=== PATIENT | male | born 1930 | race Caucasian/White ===

== ENCOUNTER 2017-05-11 14:53 | Inpatient (IN) | payer OTHER, BC ==
[~2017-05-11] VITALS: Ht 165.1 cm; Wt 69.4 kg
--- NOTE | ~2017-05-11 | HC ---
[facility] [place] [address] CONSULTATION Name: ENRIKE MCDUFFIE Room #: 214-P [facility] IN M.R.#: [id number] Admission: 05/11/17 Attend Phys: Augie Calvo MD Discharge: Date of : 30 Report #: [id number] THIS REPORT FOR: //name// CC: Lenard Calvo DATE OF SERVICE: 05/12/2017 HISTORY OF PRESENT ILLNESS: This is an 86-year-old male patient on whom history is not very clear. The patient indicates that he is having arthritis and weakness, which started about 6-8 months ago. It started spontaneously without trauma and has progressively become worse. Sometime along the time, he also has developed tremor, but he thinks tremor is just a few weeks' duration. He does not know anything which makes the symptoms better or worse. REVIEW OF SYSTEMS: Indicate he has a history of coronary artery disease. He has a history of DVT. He falls down. He has a history of atrial fibrillation. He does have a history of COPD. Record indicated that he also has a history of noncompliance. This patient is on anticoagulation and his last INR was 2.4. The patient also has a history of dyslipidemia and he indicates he is on statin. He also indicates that he has noticed that he becomes confused and he does not remember as much as he used to. He does have visual disturbances, but that has been present for a long time and is because of retinal problem. He denies any loss of hearing. He denies any new musculoskeletal, constitutional, dermatological, hematological, psychiatric, throat, or allergic symptom. I did carry out 14-point review of system and it was mostly noncontributory. PAST MEDICAL HISTORY: Positive for significant cardiac problem. FAMILY HISTORY: Negative for early age stroke. SOCIAL HISTORY: He does not smoke, but he does drink alcohol. PHYSICAL EXAMINATION: The patient's examinations indicate that this patient is alert and responsive. He was able to tell me what month and what date it is. His speech was intact. His fund of knowledge and memory is unremarkable. His cranial nerve examination 2-12 was mostly unremarkable except for visual loss in the right eye. Neuromuscular examinations indicate that he is weaker in all 4 extremities. It is more so distally than proximally. His position sense is present. His reflexes are well elicited in the lower extremities. He does not have any [id number] abnormality. I could not look at the fundus very well. He is a reasonably well-developed individual who does not have any dysmorphic features of eyes, ears, and face. His vision and hearing looks adequate. 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 His pulses are somewhat difficult to feel, but he has no edema, cyanosis, or jaundice. He has no thyroid mass. His heart is irregular consistent with [address] [address] CONSULTATION Name: ENRIKE MCDUFFIE Shirley Room #: 214-P [facility] IN ..#: [id number] Admission: 05/11/17 Attend Phys: Augie Calvo MD Discharge: Date of : 30 Report #: [id number] atrial fibrillation. Respiratory examination does not appear to be showing any marked respiratory difficulty or rhonchi on either side. Blood pressure is 106/54, respiration is 20, pulse is 98, and temperature is 98.9. LABORATORY DATA: White count is 5.3. His creatinine is somewhat high at 1.5. His TSH is normal and so is the vitamin B12. His CT scan of the head was mostly unremarkable. IMPRESSION: 1. Weakness in all 4 extremities of unknown etiology. He is complaining of lot of spine problems. We will try to get the workup done in this patient and he will need the evaluation of the brain and spine. 2. Systemic etiologies including collagen vascular disorder need to be excluded. 3. I do not know what his confusion is from, but we will try to work him up. 4. He does have urinary tract infection and part of his symptom may be secondary to encephalopathy, especially the confusion. RECOMMENDATIONS: 1. MRI. 2. EEG. 3. He needs EMG, but we do not have any machine to do EMG. 4. We will see how he does with physical therapy. 5. I discussed all of it with the patient and he understands all those and he wants to follow this plan. Thank you very much for this referral and if you have any question, please feel free to contact me. <ELECTRONICALLY SIGNED> By: Devon Cortes MD 05/13/17 0721 0916 1144 Devon Cortes MD /nt
--- NOTE | ~2017-05-11 | EEG ---
[facility] [place] [address] [place] [address] ELECTROENCEPHALOGRAM Name: ENRIKE MCDUFFIE Room #: 214-P [facility] IN M.R.#: [id number] Admission: 05/11/17 Attend Phys: Augie Calvo MD Discharge: Date of : 30 Report #: [id number] THIS REPORT FOR: //name// CC: Lenard Calvo DATE OF SERVICE: 05/12/2017 This patient is being evaluated for dizziness. The EEG was done by placing the electrodes by standard 10-20 system of electrode placement. Both referential and sequential montages were used for recording. Background activity in this patient's EEG is about 8 Hz and 30 microvolt. The patient went to sleep that is associated with bilaterally symmetrical sleep spindle and vertex sharp waves. Photic stimulation is unremarkable. Throughout the record, no active epileptiform activity was noticed. IMPRESSION: This patient's electroencephalogram is intermixed with theta range slowing. That is a nonspecific abnormality, which can occur with encephalopathy, effect of psychotropic medication, dementia, etc. Clinical correlation is recommended. <ELECTRONICALLY SIGNED> By: Devon Cortes MD 05/13/17 0719 1842 [id number] Devon Cortes MD /nt
--- NOTE | ~2017-05-11 | EKG ---
[address] [address] ELECTROCARDIOGRAM REPORT Name: ENRIKE MCDUFFIE Room #: 214-P ADM IN M.R.#: [id number] Admission: 05/11/17 Attend Phys: Augie Calvo MD Discharge: Date of : 30 Report #: [id number] THIS REPORT FOR: //name// [facility] ED Test Date: 2017-05-11 Test Time: 15:20:24 Pat Name: ENRIKE MCDUFFIE Department: Room: 214 Gender: M Soliciting Freight Agent: jenny : [phone] Requested By: Evangelista Iyer Order Number: [id number] MD: José Miguel Martinez Measurements Intervals [place] Rate: 101 P: MN: QRS: -82 QRSD: 133 T: -47 QT: 365 QTc: 474 Interpretive Statements Atrial fibrillation Right bundle branch block Baseline wander in lead(s) V2 Compared to ECG 12/01/2015 14:41:29 No significant change was found Electronically Signed On 05-12-2017 7:47:19 [employer] by José Miguel Martinez [email or web address] <ELECTRONICALLY SIGNED> By: José Miguel Martinez MD, [facility] 05/12/17 0747 1520 1520 José Miguel Martinez MD, [facility] /EPI
--- NOTE | ~2017-05-11 | HC ---
[facility] [place] [address] CONSULTATION Name: ENRIKE MCDUFFIE Shirley Room #: 214-P [facility] IN .R.#: [id number] Admission: 05/11/17 Attend Phys: Augie Calvo MD Discharge: 05/14/17 Date of : 30 Report #: [id number] THIS REPORT FOR: //name// CC: Lenard Calvo DATE OF SERVICE: 05/14/2017 HISTORY OF PRESENT ILLNESS: The patient is an 86-year-old white male, who has had a history of weakness over the past 6-8 months. He also has had some problems with confusion. He notes his symptoms have worsened in the past several weeks. He has degenerative arthritic complaints that way in as well. He was seen by Neurology and noted to have confusion with question of encephalopathy. He also was noted to have weakness of all 4 extremities. MRI scan did show arthritic changes of his cervical, thoracic, and lumbar spine. MRI of the head was benign except for some changes noted with the right eye, which is old. The patient is noted to have some cognitive impairment/encephalopathy. Neurology has recommended an EMG as an outpatient and further lab evaluation to rule out a neuromuscular disease. The patient has significant functional mobility and ADL deficits as well as cognitive concerns and we are seeing him in rehabilitation medicine consultation. PAST MEDICAL HISTORY: Includes hypertension; atrial fibrillation, on anticoagulation; chronic dizziness. He has had a history of falls as noted above. He has had a coronary artery bypass graft x 4; history of COPD; atrial fibrillation; right lower extremity DVT. There is a note of some noncompliance. MEDICATIONS: Please see the full medication listing. HABITS: There is a note of 2 shots of bourbon daily. No history of tobacco abuse. SOCIAL HISTORY: recently approximately 2 months ago. Lives in a house alone. Uses a walker. Involved daughter. REVIEW OF SYSTEMS: Did not offer any current complaints of chest pain, shortness of breath, or abdominal discomfort. He has some chronic arthritic complaints, which is premorbid. 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 PHYSICAL EXAMINATION: GENERAL: An 86-year-old white male, no obvious distress. VITAL SIGNS: Last recorded temperature 98.3, pulse 69, respirations 16, and blood pressure 107/52. NEUROLOGIC: The patient is alert. There is some latency to his responses. He will follow basic 1-step commands. Some slowness in his responses. His facies appeared symmetric. Functional range of motion of both upper extremities. [facility] [address] [place] [address] CONSULTATION Name: ENRIKE MCDUFFIE Room #: 214-P [facility]#: [id number] Admission: 05/11/17 Attend Phys: Augie Calvo MD Discharge: 05/14/17 Date of : 30 Report #: [id number] Strength is grade 3+ to 4-/5. His lower extremities, he has functional range of motion with strength grade 3+ to 4-/5. DTRs are grade 1-2. He does appear to have position sense present. He does have the blindness of that right eye. Lower extremity strength is probably a grade 3+ to 4-/5. Functionally, he is transferring with mod assist and did ambulate mod assist 120 feet using the front-wheeled walker. Some retropulsive tendency. ASSESSMENT: An 86-year-old white male with the following problem list: 1. Encephalopathy with cognitive impairment, appears multifactorial. 2. Rule out neuromuscular disorder. He is to have outpatient followup with Neurology including EMG and laboratory workup. 3. Acute renal insufficiency, which is improving. 4. Atrial fibrillation with rapid ventricular rate. 5. Urinary tract infection with sepsis. 6. Dizziness, which is noted to be chronic. 7. Degenerative arthritis with some chronic pain. 8. Sarcopenia. PLAN: Note, geriatric recommendations to stop the statin to possibly explain some of his cognitive decline. Would anticipate the patient should be a good candidate for an acute in-hospital inpatient rehabilitation stay. The goal would be to maximize his functional independence so that he could hopefully return back to his prior living situation. We will check on acute rehab bed availability and we will be glad to follow up with you regarding his rehab therapy needs. Thank you for asking us to assist in this patient's care. <ELECTRONICALLY SIGNED> By: Ken Silverman MD 06/10/17 1030 1225 27 Ken Silverman MD /nt
--- NOTE | ~2017-05-11 | HC ---
[facility] [place] [place] [address] CONSULTATION Name: ENRIKE MCDUFFIE Room #: 214-P [facility] IN M.R.#: [id number] Admission: 05/11/17 Attend Phys: Augie Calvo MD Discharge: 05/14/17 Date of : 30 Report #: [id number] THIS REPORT FOR: //name// CC: PAT Calvo MD DATE OF SERVICE: 05/14/2017 INTRODUCTION: The patient is an 86-year-old male who is being seen for general podiatric care as it pertains to severe onychodystrophy. The patient has been admitted to [facility] with weakness, chronic pain, some measure of debilitation and dizziness. He is in the process of transitioning to rehabilitation floor. Main complaint regarding his feet is severely dystrophic and elongated nails that he has been physically unable to care for and have been painful and difficult for him to contend with. He has no other complaints with regard to his feet and no acute issues. Remainder of his past medical history with regard to this consultation is unremarkable. His pedal exam reveals dorsalis pedis and posterior tibial pulses graded at 1/4. Capillary refill time is within normal limits. He demonstrates 2+ lower extremity edema that is likely cardiac and mechanically related. There are no acute changes with regard to this edema such as blistering ulceration, etc. Neurologically, the patient is grossly intact to sensory stimulus including sharp, dull, proprioceptive and vibratory sensations. His nails are severely thickened, elongated, and have curled back on themselves. Both great toenails are over 4 cm long, thickened with old subungual bleeding. There are no other relevant dermatologic findings. The patient's nails were debrided and no additional underlying pathology was noted such as bacterial infection, ulceration, drainage, etc. IMPRESSION: 1. Onychomycosis with severe onychodystrophy. 2. Lower extremity edema. PLAN: The patient's nails were debrided as mentioned. No additional treatment was required. The patient was given information for followup on an outpatient basis if he so desires. It has been a pleasure having the opportunity of working with the patient. I will be pleased to follow up with him upon request. <ELECTRONICALLY SIGNED> By: Chito Remy DPM 06/04/17 1741 1648 0113 Chito Remy DPM /nt
[~2017-05-11 14:53] MED LIST: COUMADIN 1MG TAB1 M1 PO; COUMADIN 5 MG TA5 M1 PO; CRESTOR10 MG PO; HYDROCODONE-AP1 EAC6 PO; LASIX 20 MG TAB20 MG PO; LASIX 40 MG TAB40 M2 PO; LEVOTHYROXINE 0.15MG PO; PRINIVIL10 MG PO; SPIRIVA INH; TENORMIN25 MG PO; TRAMADOL 50 MG50 MG PO; TUMS PO; TYLENOL325 MG PO
[2017-05-11 15:24] LABS: ABSOLUTE NEUTROPHILS 5.4 thou/uL (1.4-8.2); BASOPHILS 0.9 % (0.0-2.0); EOSINOPHILS 0.4 % (0.0-3.0); HEMATOCRIT 37.3 % (42.0-52.0); HEMOGLOBIN 12.6 gm/dL (14.0-18.0); LYMPHOCYTES 17.9 % (24.0-44.0); MCH 33.2 pg (26.0-34.0); MCHC 33.7 g/dL (28.0-37.0); MCV 98.4 fL (80.0-100.0); MONOCYTES 10.3 % (1.0-8.0); PLATELET COUNT 193 thou/uL (150-400); POLYS 70.5 % (36.0-66.0); RBC 3.79 mil/uL (4.50-6.00); RDW 13.6 % (10.5-14.5); WBC 7.7 thou/uL (4.0-11.0)
[2017-05-11 15:39] LABS: ANION GAP 12 mmol/L (7-16); BUN 31 mg/dL (7-18); CALCIUM 10.1 mg/dL (8.5-10.1); CHLORIDE 103 mmol/L (98-107); CO2 27 mmol/L (21-32); CREATININE 1.9 mg/dL (0.7-1.3); GLUCOSE 97 mg/dL (74-106); POTASSIUM 3.9 mmol/L (3.5-5.1); SODIUM 142 mmol/L (136-145); TROPONIN-I < 0.04 ng/mL (<0.06)
[2017-05-11 15:44] LABS: APTT 39.5 Seconds (24.5-32.8); INR 2.4; PROTIME 24.5 Seconds (9.3-11.4)
[2017-05-11 16:55] VITALS: BP 116/68
[2017-05-11 17:16] VITALS: BP 119/74
[2017-05-11] MEDS ORDERED: ATENOLOL 50MG T50 M1 PO (17:54)
[2017-05-11] MEDS ORDERED: LASIX 20 MG TAB20 MG PO (17:56)
[2017-05-11] MEDS ORDERED: LIPITOR 20 MG T20 M1 PO (17:57)
[2017-05-11] MEDS ORDERED: COUMADIN 2 MG TA2 M1 PO (17:57)
[2017-05-11] MEDS ORDERED: NITROGLYCERIN0.4 MG SUBLING (17:58)
[2017-05-11] MEDS ORDERED: FOLIC ACID1 MG PO (17:59)
[2017-05-11] MEDS ORDERED: REMERON15 MG PO (18:01)
[2017-05-11] MEDS ORDERED: SYNTHROID175 MCG PO (18:02)
[2017-05-11] MEDS ORDERED: FLOMAX0.4 MG PO (18:04)
[2017-05-11] MEDS ORDERED: VITAMIN D2000 UNIT PO (18:06)
[2017-05-11] MEDS ORDERED: VITAMIN B-12500 MCG PO (18:06)
[2017-05-11 20:18] VITALS: BP 140/80
[2017-05-11 20:19] VITALS: BP 140/80
[2017-05-11 22:25] LABS: FOLIC ACID > 40.0 ng/mL (8.6-58.9)
[2017-05-11 23:38] VITALS: BP 134/63
[2017-05-12 03:57] VITALS: BP 106/54
[2017-05-12 04:15] LABS: HEMATOCRIT 30.7 % (42.0-52.0); MCH 33.6 pg (26.0-34.0); MCHC 34.2 g/dL (28.0-37.0); MCV 98.5 fL (80.0-100.0); RBC 3.11 mil/uL (4.50-6.00); RDW 13.8 % (10.5-14.5); WBC 5.3 thou/uL (4.0-11.0)
[2017-05-12 04:17] LABS: HEMOGLOBIN 10.5 gm/dL (14.0-18.0)
[2017-05-12 04:19] LABS: CALCIUM 8.5 mg/dL (8.5-10.1); CREATININE 1.5 mg/dL (0.7-1.3); POTASSIUM 3.5 mmol/L (3.5-5.1)
[2017-05-12 05:19] LABS: URINE BILIRUBIN 1+ (Negative); URINE BLOOD 3+ (Negative); URINE CLARITY CLEAR; URINE COLOR YELLOW; URINE GLUCOSE-RANDOM* NEGATIVE (Negative); URINE KETONES TRACE (Negative); URINE LEUKOCYTES 2+ (Negative); URINE NITRITE NEGATIVE (Negative); URINE PROTEIN (DIPSTICK) TRACE (Negative); URINE SPECIFIC GRAVITY 1.015 (1.005-1.035)
[2017-05-12 05:46] LABS: ICTOTEST (BILI CONFIRMATORY) Positive (Negative)
[2017-05-12 05:47] LABS: SQUAMOUS 4-10 Moderate /LPF (0-3)
[2017-05-12 05:48] LABS: AMORPHOUS URATES Few /LPF (None Seen); BACTERIA 1-9 Few /HPF (None Seen); CRYSTALS None Seen /LPF (None Seen); HYALINE CASTS 0-3 Few /LPF (None Seen); MUCUS 0-3 Light strn/LPF (None Seen); URINE RBC >20 Many /HPF (0-2)
[2017-05-12 10:05] VITALS: BP 129/70
[2017-05-12 13:42] LABS: CHOLESTEROL 93 mg/dL (<200); HDL CHOLESTEROL 48 mg/dL (>40); LDL CHOLESTEROL 29 mg/dL (<100); MAGNESIUM 1.5 mg/dL (1.8-2.4); TC:HDL 1.9 Ratio (Not establshd); TRIGLYCERIDE 84 mg/dL (<150); VLDL 17 mg/dL (<40)
[2017-05-12 16:59] VITALS: BP 116/58
[2017-05-12 17:50] LABS: URINE CREATININE-RANDOM* 150.2 mg/dL
[2017-05-12 19:17] VITALS: BP 103/54
[2017-05-13 04:26] VITALS: BP 117/60
[2017-05-13 07:36] VITALS: BP 114/66
[2017-05-13 07:56] LABS: HEMATOCRIT 29.8 % (42.0-52.0); MCH 33.2 pg (26.0-34.0); MCHC 33.6 g/dL (28.0-37.0); MCV 98.8 fL (80.0-100.0); RBC 3.02 mil/uL (4.50-6.00); RDW 13.8 % (10.5-14.5); WBC 4.6 thou/uL (4.0-11.0)
[2017-05-13 08:10] LABS: PROTIME 19.1 Seconds (9.3-11.4)
[2017-05-13 08:14] LABS: CREATININE 1.2 mg/dL (0.7-1.3); MAGNESIUM 1.5 mg/dL (1.8-2.4); POTASSIUM 3.6 mmol/L (3.5-5.1)
[2017-05-13 11:14] VITALS: BP 104/67
[2017-05-13 16:13] VITALS: BP 119/66
[2017-05-13 17:01] VITALS: BP 110/61; BP 113/69; BP 114/65
[2017-05-13 19:24] VITALS: BP 105/60
[2017-05-14 03:38] VITALS: BP 123/69
[2017-05-14 04:34] LABS: INR 1.6; PROTIME 16.6 Seconds (9.3-11.4)
[2017-05-14 04:38] LABS: ALBUMIN 2.5 g/dL (3.4-5.0); CALCIUM 8.4 mg/dL (8.5-10.1); CREATININE 1.4 mg/dL (0.7-1.3); PHOSPHORUS 2.6 mg/dL (2.5-4.9); POTASSIUM 4.2 mmol/L (3.5-5.1); TOTAL BILIRUBIN 0.3 mg/dL (<0.1-1.0); TOTAL PROTEIN 5.8 g/dL (6.4-8.2)
[2017-05-14 04:49] LABS: % SATURATION 14 % (20-39); IRON 23 ug/dL (65-175); TIBC 169 ug/dL (250-450)
[2017-05-14 07:32] VITALS: BP 137/75
[2017-05-14 11:25] VITALS: BP 107/52
[2017-05-14] MEDS ORDERED: MIRALAX17 GM PO (11:26)
[2017-05-14] MEDS ORDERED: TYLENOL325 MG PO (11:26)
== END 2017-05-14 15:48 | DRG 871 ==
LOC: ER 14:53 → EROBS 16:31 → 2N 16:31
PROVIDERS: Hospitalist; Internal Medicine Geriatric Medicine; Nurse Practitioner; Registered Nurse
DX: A41.9 Sepsis, unspecified organism (principal); G93.40 Encephalopathy, unspecified; N17.9 Acute kidney failure, unspecified; N39.0 Urinary tract infection, site not specified; E78.5 Hyperlipidemia, unspecified; I10 Essential (primary) hypertension; J44.9 Chronic obstructive pulmonary disease, unspecified; I48.91 Unspecified atrial fibrillation; M19.90 Unspecified osteoarthritis, unspecified site; G89.29 Other chronic pain; G31.84 Mild cognitive impairment of uncertain or unknown etiology; M62.84 Sarcopenia; B35.1 Tinea unguium; L60.3 Nail dystrophy; F32.9 Major depressive disorder, single episode, unspecified; Z95.1 Presence of aortocoronary bypass graft; Z86.718 Personal history of other venous thrombosis and embolism; Z79.899 Other long term (current) drug therapy; Z91.81 History of falling; Z82.49 Family history of ischemic heart disease and other diseases of the circulatory system
CPT/HCPCS: 10081

== ENCOUNTER 2017-05-14 13:25 | Inpatient (IN) | payer OTHER, BC ==
[~2017-05-14] VITALS: Ht 175.3 cm; Wt 66.9 kg
--- NOTE | ~2017-05-14 | H ---
[facility] [place] [address] [place] [address] HISTORY AND PHYSICAL Name: ENRIKE MCDUFFIE Room #: 504-1 ADM IN M.R.#: [id number] Admission: 05/14/17 Attend Phys: Ken Silverman MD Discharge: Date of : 30 Report #: [id number] THIS REPORT FOR: //name// CC: Ken Eubanks DATE OF SERVICE: 05/14/2017 HISTORY AND PHYSICAL AND POST ADMISSION PHYSICIAN EVALUATION HISTORY OF PRESENT ILLNESS: The patient is an 86-year-old white male with a prior history of weakness over the past 6-8 months. He also had some problems with confusion. His symptoms have worsened in the past several weeks. He has degenerative arthritic complaints as well. He was seen by Neurology during this acute hospitalization and noted to have confusion with a question of encephalopathy. He was also noted to have weakness of all 4 extremities. MRI scan did show arthritic changes of the cervical, thoracic, and lumbar spine. MRI of the head was benign except for some changes noted with the right eye, which is old. The patient was noted to have some cognitive impairment with encephalopathy. Neurology recommended an EMG as an outpatient and further lab evaluation to rule out a neuromuscular disease. The patient does have significant functional mobility and ADL deficits as well as cognitive concerns and he has now been admitted for acute in-hospital inpatient rehabilitation. PAST MEDICAL HISTORY: Includes hypertension, atrial fibrillation, on anticoagulation; chronic dizziness. He has a history of falls, which are intermittent. He has coronary artery disease with coronary artery bypass graft x 4, history of COPD, atrial fibrillation, and right lower extremity DVT. There is note of some noncompliance. MEDICATIONS: Please see the full medication listing. Each of these was individually reconciled and includes vitamins, herbals, and supplements. HABITS: There is a note of 2 shots of bourbon daily. No history of tobacco abuse. SOCIAL HISTORY: recently approximately 2 months ago. He lives in a house alone. Uses a walker. Involved daughter. REVIEW OF SYSTEMS: No current complaints of chest pain, shortness of breath, or abdominal discomfort. 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 He does have diffuse chronic arthritic complaints. PHYSICAL EXAMINATION: GENERAL: An 86-year-old white male who was seen earlier in no distress, was [place] [address] HISTORY AND PHYSICAL Name: ENRIKE MCDUFFIE Room #: [address] [place] [address] [facility].#: [id number] Admission: 05/14/17 Attend Phys: Ken Silverman MD Discharge: Date of : 30 Report #: [id number] VITAL SIGNS: Last recorded temperature 97.8, pulse 80, respirations 18, and blood pressure 122/70. He does have the right eye blindness. HEENT: Facies otherwise appeared symmetric. CHEST: Sounded clear to auscultation. CARDIOVASCULAR: Regular rate with extra beat. ABDOMEN: Bowel sounds positive. Nontender. GENITOURINARY AND RECTAL: Deferred. NEUROLOGIC: He does follow basic 1 step commands. There is some latency to his responses. Again, he was rather sleepy when I saw him, but was pleasant. Functionally, he has been mod assist with basic transfers prior to coming up to the rehab black and as needed mod assist, ambulated short distance with some retropulsive tendency. ASSESSMENT: An 86-year-old white male with the following problems: 1. Encephalopathy with cognitive impairment, appears multifactorial. 2. Rule out neuromuscular disorder. He is to have an outpatient followup with Neurology including EMG and laboratory workup. 3. Acute renal insufficiency, which is improving. 4. Atrial fibrillation with rapid ventricular rate. 5. Urinary tract infection with sepsis. 6. Dizziness noted to be chronic. 7. Degenerative arthritis with some chronic pain. 8. Sarcopenia. 9. Monitor for orthostasis. PLAN: The patient is admitted for acute in-hospital inpatient rehabilitation. From a postadmission physician evaluation perspective, there are no relevant changes since the preadmission screening. Please see the above review of prior and current medical and functional conditions and comorbidities. Please see the patient's previous and current functional status. As far as risk of complications, the patient has the multiple medical comorbidities as noted above. Initial plan of care involves the interdisciplinary acute inpatient rehabilitation program with the goal of maximizing the patient's functional independence, so that he can hopefully return back to his prior living situation. Measurable functional goals would be for him to become modified independent with basic transfers, mobility issues at least at the walker level as well as improvement of his overall cognition. Prognosis is reasonably good with estimated length of stay probably at least 2 weeks and potentially longer if needed. Potential barriers would include his multiple medical comorbidities and decreased functional status. The patient meets diagnostic criteria for an acute in-hospital inpatient rehabilitation stay. He does meet the medical necessity criteria and we will have the polymer materials consultant physicians continue to follow. He is on the rehab black. He [facility] [address] [place] [address] HISTORY AND PHYSICAL Name: ENRIKE MCDUFFIE Room #: 504-1 ADM IN M.R.#: [id number] Admission: 05/14/17 Attend Phys: Ken Silverman MD Discharge: Date of : 30 Report #: [id number] does have the tolerance for therapies and has an appropriate discharge goals back to the home setting. <ELECTRONICALLY SIGNED> By: Ken Silverman MD 05/15/17 1424 0705 0740 Ken Silverman MD /PMT
--- NOTE | ~2017-05-14 | PLAN ---
[facility] [place] [address] REHAB UNIT PLAN OF CARE Name: ENRIKE MCDUFFIE Room #: 504-2 ADM IN M.R.#: [id number] Admission: 05/14/17 Attend Phys: Ken Silverman MD Discharge: Date of : 30 Report #: [id number] THIS REPORT FOR: //name// CC: Ken Eubanks DATE OF SERVICE: 05/16/2017 SUBJECTIVE: The patient is seen back in followup. He is in no distress. Temperature 36.9, pulse 86, respirations 18, blood pressure 101/59. Transfers are contact guard with gait contact guard 250 feet with a front-wheeled walker. He is alert and pleasant. Lower body dressing is contact guard. We are monitoring him for any orthostatic symptomatology. Speech therapy is involved with mild comprehensive deficits noted. He has mild expressive deficits. ASSESSMENT: 1. Encephalopathy with cognitive impairment, appears multifactorial. 2. Rule out neuromuscular disorder. He is to have an outpatient followup with neurology. 3. Acute renal insufficiency noted to be improving. Last recorded creatinine is 1.2. 4. Atrial fibrillation with rapid ventricular rate. 5. Urinary tract infection with sepsis. 6. Dizziness noted to be chronic. 7. Degenerative arthritis with some chronic pain. 8. Monitoring for orthostasis. PLAN: The overall plan of care is based on the preadmission screen, post-admission physician evaluation and information garnered from therapy assessments. 1. Estimated length of stay is probably fairly short 7-10 days, possibly up to 2 weeks if needed. 2. Medical prognosis reasonably good. 3. Anticipated interventions includes the interdisciplinary acute inpatient rehabilitation program with PT and OT. Speech therapy, rehab nursing assisting regarding medication management, skin care prophylaxis, bowel and bladder issues and nursing education. Case management is involved as well as the senior health consultant physicians and Rehab Psychology. The goal is to maximize his functional independence so he can return back to the home setting. 4. Anticipated functional outcomes would be for him to be modified independent at least at the walker level with improvement in cognition and ADLs. 5. Discharge destination would be back to the home setting. He has been living alone as his recently . 6. Expected therapy by discipline includes PT, OT and speech 1 hour per day, [place] [phone] REHAB UNIT PLAN OF CARE Name: ENRIKE MCDUFFIE Room #: 504-2 [facility] IN [facility]#: [id number] Admission: 05/14/17 Attend Phys: Ken Silverman MD Discharge: Date of : 30 Report #: [id number] each five days a week throughout the duration of the acute inpatient rehabilitation stay. <ELECTRONICALLY SIGNED> By: Ken Silverman MD 05/20/17 0857 1036 [id number] Ken Silverman MD /PMT
--- NOTE | ~2017-05-14 | HC ---
[facility] [place] [address] [place] [address] CONSULTATION Name: ENRIKE MCDUFFIE Room #: 504-2 ADM IN M.R.#: [id number] Admission: 05/14/17 Attend Phys: Ken Silverman MD Discharge: Date of : 30 Report #: [id number] THIS REPORT FOR: //name// CC: Kne Eubanks DATE OF SERVICE: 05/16/2017 NEUROBEHAVIORAL STATUS EXAM: ATTENDING PHYSICIAN: Ken Silverman MD. PIPE CONNECTOR: Khang Carrillo, PhD. CLINICAL PRESENTATION: The patient is an 86-year-old male admitted to [facility] rehab unit for a comprehensive inpatient rehabilitation program to improve functional mobility and activities of daily living and self-care and mental status secondary to deficits from encephalopathy, multifactorial with cognitive impairment. Additional assessment includes a rule out of a neuromuscular disorder, acute. Patient also carries diagnoses of acute renal insufficiency, atrial fibrillation with rapid ventricular rate, urinary tract infection with sepsis, dizziness noted to be chronic, degenerative arthritis with some chronic pain, sarcopenia and monitor for orthostasis. His daughter reports that the patient has a high daily consumation of alcohol and has for many years. She suspects that his use of alcohol is contributing to his falling. Neuropsychological consultation was requested to provide assistance in the assessment of cognitive and emotional status and to provide recommendations and services. The patient is currently living independently in his own home. He has two children. His about 2 months ago. The patient is a college graduate. 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 TECHNIQUES UTILIZED: Clinical interview, review of medical records, staff consultation and behavioral observation, mini mental status exam 2 standard version, letter and category fluency assessment, clock drawing and brief abstract reasoning test. EXAMINATION FINDINGS: The patient was alert and cooperative with the assessment. He accurately described events surrounding his admission. There is no evidence of aphasia. His thoughts are logical and goal oriented. There is no evidence of thought disorder. He does not report auditory or visual [facility] [email or web address] [address] CONSULTATION Name: ENRIKE MCDUFFIE Room #: 504-2 [facility] IN [facility].#: [id number] Admission: 05/14/17 Attend Phys: Ken Silverman MD Discharge: Date of : 30 Report #: [id number] hallucinations. He describes his symptoms as including sleep, appetite and depression. Patient has had a 60-pound weight loss. He does not report anxiety. He has discontinued driving as a result of a fall which lresulted in a eft retina detachment. The patient does not report use of alcohol. However, as indicated, his daughter reports a high level of use and that the patient has been reluctant to disclose to his health care providers the extent of his alcohol use. She describes him as an alcoholic with daily intake of bourbon. His daughter has been providing assistance to help him maintain independent living in the community. His performance on the MMSE 2 brief version was extremely low with a raw score of 10 of 16, which is a T score of 13 and percentile rank of less than 1. His performance improved on the MMSE 2 standard version with a raw score of 23 of 30, which is a T score of 32 and percentile rank of 4. The patient was 5 of 5 for serial 7's. He was unable to accurately copy a simple geometric design. The patient also had some difficulty with hand placement for this clock drawing Letter fluency was in the low average range with a T score of 43 and percentile rank of 24. Category fluency was in the low average range with a T score of 40, percentile rank of 16. Brief abstract reasoning test was within normal limits with a raw score of 6 of 8. The patient is presenting with deficits in immediate recall and executive functioning. His mood appears depressed. A history of alcohol abuse is reported and continuing to persist. DIAGNOSTIC IMPRESSION: Neurocognitive disorder, unspecified, without behavior disorder -- extent to be determined, likely in the moderate range. Alcohol use disorder -- persistent. Unspecified depressive disorder. RECOMMENDATIONS: The patient will benefit from continued use of antidepressant medication to assist with mood and appetite. His alcohol use should be discontinued. The patient is likely to require assistance in the management of medication and nutrition along with supervision over finances to maintain safety and good judgment. Alcohol use is likely to be contributing to variability in cognitive [facility] [address] [place] [address] CONSULTATION Name: ENRIKE MCDUFFIE Shirley Room #: 504-2 ADM IN M.R.#: [id number] Admission: 05/14/17 Attend Phys: Ken Silverman MD Discharge: Date of : 30 Report #: [id number] functioning prior to his admission. A followup neuropsych assessment upon discharge will also be of benefit to clarify the severity of cognitive disorder. Thank you very much for allowing me to provide the consultation on this patient. <ELECTRONICALLY SIGNED> By: Khang Carrillo, PhD 05/18/17 1353 1756 2311 Khang Carrillo, PhD /nt
[~2017-05-14 13:25] MED LIST changes: +ATENOLOL 50MG T50 M1 PO; +COUMADIN 2 MG TA2 M1 PO; +FLOMAX0.4 MG PO; +FOLIC ACID1 MG PO; +LIPITOR 20 MG T20 M1 PO; +MIRALAX17 GM PO; +NITROGLYCERIN0.4 MG SUBLING; +REMERON15 MG PO; +SYNTHROID175 MCG PO; +VITAMIN B-12500 MCG PO; +VITAMIN D2000 UNIT PO
[2017-05-14 16:00] VITALS: BP 122/78
[2017-05-14 19:35] VITALS: BP 118/73
[2017-05-14 20:10] VITALS: BP 122/70
[2017-05-15 05:59] LABS: HEMATOCRIT 30.7 % (42.0-52.0); HEMOGLOBIN 10.2 gm/dL (14.0-18.0); MCH 33.2 pg (26.0-34.0); MCHC 33.4 g/dL (28.0-37.0); MCV 99.3 fL (80.0-100.0); RBC 3.09 mil/uL (4.50-6.00); RDW 13.8 % (10.5-14.5); WBC 3.9 thou/uL (4.0-11.0)
[2017-05-15 06:11] LABS: CALCIUM 7.8 mg/dL (8.5-10.1); CREATININE 1.2 mg/dL (0.7-1.3); INR 1.6; POTASSIUM 4.1 mmol/L (3.5-5.1); PROTIME 16.2 Seconds (9.3-11.4)
[2017-05-15 08:36] VITALS: BP 112/64
[2017-05-15 19:50] VITALS: BP 110/60
[2017-05-15 21:09] LABS: URINE BILIRUBIN NEGATIVE (Negative); URINE BLOOD 3+ (Negative); URINE CLARITY CLEAR; URINE COLOR YELLOW; URINE GLUCOSE-RANDOM* NEGATIVE (Negative); URINE KETONES NEGATIVE (Negative); URINE LEUKOCYTES-REFLEX NEGATIVE (Negative); URINE NITRITE-REFLEX NEGATIVE (Negative); URINE PROTEIN (DIPSTICK) NEGATIVE (Negative); URINE SPECIFIC GRAVITY 1.015 (1.005-1.035); URINE UROBILINOGEN 0.2 E.U./dl (0.2-1.0)
[2017-05-15 21:25] LABS: SQUAMOUS 0-3 Few /LPF (0-3)
[2017-05-15 21:26] LABS: BACTERIA-REFLEX None Seen /HPF (None Seen); CASTS None Seen /LPF (None Seen); CRYSTALS None Seen /LPF (None Seen); URINE RBC >20 Many /HPF (0-2); URINE WBC-REFLEX 6-15 Few /HPF (0-5)
[2017-05-16 05:00] LABS: ABSOLUTE NEUTROPHILS 2.4 thou/uL (1.4-8.2); BASOPHILS 0.5 % (0.0-2.0); EOSINOPHILS 2.8 % (0.0-3.0); HEMATOCRIT 30.2 % (42.0-52.0); HEMOGLOBIN 10.2 gm/dL (14.0-18.0); LYMPHOCYTES 33.6 % (24.0-44.0); MCH 33.2 pg (26.0-34.0); MCHC 33.6 g/dL (28.0-37.0); MCV 98.8 fL (80.0-100.0); MONOCYTES 9.1 % (1.0-8.0); PLATELET COUNT 146 thou/uL (150-400); RBC 3.06 mil/uL (4.50-6.00); RDW 13.8 % (10.5-14.5); WBC 4.5 thou/uL (4.0-11.0)
[2017-05-16 05:06] LABS: INR 1.5; PROTIME 15.4 Seconds (9.3-11.4)
[2017-05-16 08:00] VITALS: BP 101/59
[2017-05-16 20:16] VITALS: BP 111/70
[2017-05-17 08:15] VITALS: BP 106/71
[2017-05-17 21:23] VITALS: BP 118/79
[2017-05-18 07:30] VITALS: BP 129/76
[2017-05-18 21:05] VITALS: BP 127/65
[2017-05-19 05:24] LABS: CALCIUM 8.5 mg/dL (8.5-10.1); CREATININE 1.2 mg/dL (0.7-1.3); POTASSIUM 3.8 mmol/L (3.5-5.1)
[2017-05-19 05:32] LABS: INR 1.3; PROTIME 13.5 Seconds (9.3-11.4)
[2017-05-19 06:01] LABS: ABSOLUTE NEUTROPHILS 2.1 thou/uL (1.4-8.2); BASOPHILS 0.8 % (0.0-2.0); EOSINOPHILS 2.3 % (0.0-3.0); HEMATOCRIT 30.9 % (42.0-52.0); HEMOGLOBIN 10.2 gm/dL (14.0-18.0); MCH 32.6 pg (26.0-34.0); MCHC 32.9 g/dL (28.0-37.0); PLATELET COUNT 163 thou/uL (150-400); POLYS 51.9 % (36.0-66.0); RBC 3.12 mil/uL (4.50-6.00); RDW 13.9 % (10.5-14.5)
[2017-05-19 08:00] VITALS: BP 97/56
[2017-05-19 19:15] VITALS: BP 107/62
[2017-05-20 06:13] LABS: INR 1.3; PROTIME 13.4 Seconds (9.3-11.4)
[2017-05-20 07:45] VITALS: BP 116/68
[2017-05-20 19:33] VITALS: BP 108/59
[2017-05-21 05:01] LABS: INR 1.3; PROTIME 13.1 Seconds (9.3-11.4)
[2017-05-21 07:30] VITALS: BP 122/75
[2017-05-21 20:17] VITALS: BP 126/74
[2017-05-22 06:31] VITALS: BP 124/56
[2017-05-22 07:34] LABS: INR 1.4; PROTIME 14.3 Seconds (9.3-11.4)
[2017-05-22 08:15] VITALS: BP 149/102; BP 99/69
[2017-05-22 15:37] VITALS: BP 99/69
[2017-05-22 20:06] VITALS: BP 103/61
[2017-05-23 06:53] LABS: INR 1.5; PROTIME 15.4 Seconds (9.3-11.4)
[2017-05-23 07:30] VITALS: BP 108/68
[2017-05-23] MEDS ORDERED: COLACE100 MG PO (08:41)
[2017-05-23] MEDS ORDERED: MIRALAX17 GM PO (08:41)
[2017-05-23 08:57] VITALS: BP 108/68
== END 2017-05-23 15:15 | disposition home health service (06) | DRG 70 ==
LOC: ENTRNSPT 05-23 14:37 → EDTRNSPTSTS 05-23 14:44
PROVIDERS: Family Medicine; Nurse Practitioner; Physical Medicine & Rehabilitation
DX: G93.40 Encephalopathy, unspecified (principal); A41.9 Sepsis, unspecified organism; N39.0 Urinary tract infection, site not specified; N17.9 Acute kidney failure, unspecified; E44.0 Moderate protein-calorie malnutrition; R53.1 Weakness; M19.90 Unspecified osteoarthritis, unspecified site; I10 Essential (primary) hypertension; I48.91 Unspecified atrial fibrillation; I25.10 Atherosclerotic heart disease of native coronary artery without angina pectoris; J44.9 Chronic obstructive pulmonary disease, unspecified; R42 Dizziness and giddiness; M62.84 Sarcopenia; I95.1 Orthostatic hypotension; R31.9 Hematuria, unspecified; M51.16 Intervertebral disc disorders with radiculopathy, lumbar region; M50.30 Other cervical disc degeneration, unspecified cervical region; M51.34 Other intervertebral disc degeneration, thoracic region; E78.5 Hyperlipidemia, unspecified; E55.9 Vitamin D deficiency, unspecified; R41.9 Unspecified symptoms and signs involving cognitive functions and awareness; F32.9 Major depressive disorder, single episode, unspecified; K59.00 Constipation, unspecified; R35.0 Frequency of micturition; Z79.01 Long term (current) use of anticoagulants; Z91.19 Patient's noncompliance with other medical treatment and regimen; Z91.81 History of falling; Z95.1 Presence of aortocoronary bypass graft; Z86.718 Personal history of other venous thrombosis and embolism; Z68.22 Body mass index [BMI] 22.0-22.9, adult; Z72.89 Other problems related to lifestyle; Z23 Encounter for immunization
CPT/HCPCS: 10092

== ENCOUNTER 2019-03-06 14:12 | Inpatient (IN) | payer OTHER, BC ==
[~2019-03-06] VITALS: Ht 175.3 cm; Wt 58.7 kg
--- NOTE | ~2019-03-06 | HC ---
[facility] [place] [address] CONSULTATION Name: ENRIKE MCDUFFIE Room #: 217-P [facility] IN .R.#: [id number] Admission: 03/06/19 Attend Phys: Rica Shaffer MD Discharge: Date of : 30 Report #: [id number] THIS REPORT FOR: //name// CC: Brandan Gamez DATE OF SERVICE: 03/08/2019 INTRODUCTION: The patient is an 88-year-old male who is being seen for general podiatric consultation regarding nail care. The patient has had no foot care for approximately a year. He has had acute pain associated with his left foot, particularly the third toe, where one of his toenails has actually punctured his skin. His admission for complications related to congestive heart failure are reviewed, with no additional past medical issues or concerns that are relevant to this consultation. The patient denies diabetes. PEDAL EXAM: Dorsalis pedis, posterior tibial pulses are weakly palpable at 1/4. Capillary refill time is within normal limits. The patient has moderate pedal and ankle edema, without significant skin sequela. The patient's musculoskeletal exam reveals no pathology. His nails are thickened, elongated, show clinical evidence of onychomycosis associated with onychodystrophy. Several of his toenails are 3-4 cm long. The left third toenail has curled back on itself and has created a puncture in the medial aspect of the third toe. There is some local inflammation without any proximal cellulitis. All the patient's nails were debrided. No additional pathology was noted. Particular attention was paid to the third toe, where the nail after debridement was noted to puncture the medial aspect of the third toe where a 1-cm wound existed. This was a superficial wound without any gross evidence of infection or deep extent. The wound was aggressively cleansed and dressed and a Betadine swab was applied. Sterile dressings were applied as well. Keep the second and third toes from contacting one another. IMPRESSION: 1. Congestive heart failure. 2. Onychodystrophy associated with onychomycosis. 3. Wound, left third toe. PLAN: The patient's nails were debrided as mentioned above. No additional treatment for his nails was needed. I discussed the patient's wound with nursing and they will change the dressing daily and monitor for infection. Now that this nail has been trimmed, this toe should go on to heal uneventfully. [address] [address] CONSULTATION Name: ENRIKE MCDUFFIE Shirley Room #: 217-P [facility] IN ..#: [id number] Admission: 03/06/19 Attend Phys: Rica Shaffer MD Discharge: Date of : 30 Report #: [id number] It is my pleasure having the opportunity of caring for the patient. I would be pleased to follow up with him upon request. By: 1716 2313 Chito Remy, MARITA /yovani
[2019-03-06 14:12] VITALS: BP 132/79
[~2019-03-06 14:12] MED LIST changes: +COLACE100 MG PO
[2019-03-06 15:11] LABS: ABSOLUTE NEUTROPHILS 2.2 thou/uL (1.4-8.2); BASOPHILS 0.8 % (0.0-2.0); EOSINOPHILS 0.7 % (0.0-3.0); HEMATOCRIT 45.4 % (42.0-52.0); HEMOGLOBIN 14.8 gm/dL (14.0-18.0); LYMPHOCYTES 40.3 % (24.0-44.0); MCH 35.5 pg (26.0-34.0); MCHC 32.5 g/dL (28.0-37.0); MONOCYTES 10.2 % (1.0-8.0); PLATELET COUNT 106 thou/uL (150-400); RBC 4.17 mil/uL (4.50-6.00); RDW 15.8 % (10.5-14.5); WBC 4.7 thou/uL (4.0-11.0)
[2019-03-06 15:16] LABS: ANION GAP 11 mmol/L (7-16); BUN 66 mg/dL (7-18); CALCIUM 10.1 mg/dL (8.5-10.1); CHLORIDE 99 mmol/L (98-107); CO2 28 mmol/L (21-32); CREATININE 2.3 mg/dL (0.7-1.3); GLUCOSE 118 mg/dL (74-106); POTASSIUM 4.9 mmol/L (3.5-5.1); SODIUM 138 mmol/L (136-145)
[2019-03-06 15:26] LABS: ALBUMIN 3.6 g/dL (3.4-5.0); SGOT 40 U/L (15-37); SGPT 28 U/L (30-65); TOTAL BILIRUBIN 1.5 mg/dL (<0.1-1.0); TROPONIN-I <0.06 ng/mL (<0.06)
[2019-03-06 15:55] LABS: MACROCYTES 1+
[2019-03-06 17:23] VITALS: BP 120/56
[2019-03-06 17:46] VITALS: BP 119/58
[2019-03-06 18:10] VITALS: BP 117/66
[2019-03-06] MEDS ORDERED: FUROSEMIDE 20 M20 MG PO (18:33)
[2019-03-06] MEDS ORDERED: COUMADIN 2 MG TA2 M1 PO (18:35)
[2019-03-06] MEDS ORDERED: FOLIC ACID1 MG PO (18:35)
[2019-03-06] MEDS ORDERED: CARVEDILOL12.5 MG PO (18:36)
[2019-03-06] MEDS ORDERED: LEVO-T100 MCG PO (18:37)
[2019-03-06] MEDS ORDERED: ATENOLOL 25 MG25 M1 PO (18:37)
[2019-03-06] MEDS ORDERED: FLOMAX0.4 MG PO (18:39)
[2019-03-06] MEDS ORDERED: REMERON15 M2 PO (18:40)
[2019-03-06] MEDS ORDERED: SPIRIVA18 MCG INH ×2 (18:41→18:43)
[2019-03-06] MEDS ORDERED: LIPITOR 20 MG T20 M1 PO (18:43)
[2019-03-06 20:20] VITALS: BP 116/59
[2019-03-07 04:01] LABS: HEMATOCRIT 42.9 % (42.0-52.0); HEMOGLOBIN 13.7 gm/dL (14.0-18.0); MCH 35.1 pg (26.0-34.0); MCHC 32.1 g/dL (28.0-37.0); MCV 109.6 fL (80.0-100.0); RBC 3.91 mil/uL (4.50-6.00); RDW 15.8 % (10.5-14.5); WBC 3.1 thou/uL (4.0-11.0)
[2019-03-07 04:13] LABS: INR 1.7; PROTIME 17.4 Seconds (9.3-11.4)
[2019-03-07 04:15] LABS: CALCIUM 9.7 mg/dL (8.5-10.1); CREATININE 2.3 mg/dL (0.7-1.3); POTASSIUM 4.2 mmol/L (3.5-5.1)
[2019-03-07 04:48] VITALS: BP 128/59
[2019-03-07 07:45] VITALS: BP 118/49
[2019-03-07 11:35] VITALS: BP 103/59
[2019-03-07 16:30] VITALS: BP 94/65
[2019-03-07] MEDS ORDERED: DESYREL150 MG PO (19:16)
[2019-03-07 20:36] VITALS: BP 98/57
[2019-03-08] VITALS (8 sets, daily range): BP systolic 86–131; BP diastolic 47–88
[2019-03-08 04:53] LABS: INR 1.7; PROTIME 17.6 Seconds (9.3-11.4)
[2019-03-08 05:03] LABS: CALCIUM 8.8 mg/dL (8.5-10.1); CREATININE 2.1 mg/dL (0.7-1.3); POTASSIUM 4.3 mmol/L (3.5-5.1)
--- NOTE | 2019-03-08 09:58 | 2DMMODE ---
[facility] [place] [address] 2 D/M-MODE ECHOCARDIOGRAM Name: FROYENRIKE J Room #: 217-P [facility] IN .R.#: [id number] Admission: 03/06/19 Attend Phys: Rica Shaffer MD Discharge: Date of : 30 Report #: [id number] THIS REPORT FOR: //name// APPROVED REPORT Study performed: 03/08/2019 08:38:19 EXAM: Comprehensive 2D, Doppler, and color-flow Echocardiogram Patient Location: Echo lab Room #: [facility] Status: routine BSA: 1.72 HR: 93 bpm BP: 93/53 mmHg Rhythm: Atrial Fibrillation Other Information Study Quality: Adequate Technically limited study due to thin body habitus. Indications Short of breath, edema, CHF. Hx: Aortic stenosis, CABG, CHF, COPD, AFIB, HTN, HLP. 2D Dimensions RVDd: 42.72 mm IVSd: 12.00 (7-11mm) LVOT Diam: 20.96 (18-24mm) LVDd: 41.55 mm PWd: 9.35 (7-11mm) Ascending Ao: 40.24 (22-36mm) LVDs: 33.30 (25-40mm) Aortic Root: 34.01 mm Volumes Left Atrial Volume (Systole) Single Plane 4CH: 61.76 mL Single Plane 2CH: 64.67 mL LA ESV Index: 42.00 mL/m2 Aortic Valve AoV Peak Varghese.: 3.07 m/s AO Peak Gr.: 37.67 mmHg LVOT Max P.30 mmHg AO Mean Gr.: 22.51 mmHg AO V2 Mean: 2.24 m/s LVOT Max V: 0.57 m/s AO V2 VTI: 56.93 cm MARKOS Vmax: 0.64 cm2 [facility] [place] [address] 2 D/M-MODE ECHOCARDIOGRAM Name: FROYENRIKE Room #: 217-P [facility] IN ..#: [id number] Admission: 03/06/19 Attend Phys: Rica Shaffer MD Discharge: Date of : 30 Report #: [id number] Mitral Valve MV Decel. Time: 145.82 ms MV E Max Varghese.: 1.19 m/s Pulmonary Valve PV Peak Varghese.: 0.47 m/s PV Peak Gr.: 0.87 mmHg Tricuspid Valve TR Peak Varghese.: 3.51 m/s RAP Estimate: 15.00 mmHg TR Peak Gr.: 49.46 mmHg PA Pressure: 64.00 mmHg Left Ventricle The left ventricle is normal size. Mild basal septal hypertrophy is present. Left ventricular systolic function is low normal. LVEF is 50%. This study is not technically sufficient to allow evaluation of the LV diastolic function due to atrial fibrillation. Right Ventricle Right ventricle is dilated. Right ventricle is hypokinetic. Atria Left atrium is dilated. Right atrium is dilated. Aortic Valve The aortic valve is normal in structure. Leaflets are heavily calcified. Moderate aortic regurgitation. There is severe valvular aortic stenosis. Calculated aortic valve area is 0.6 cm2 with maximum pressure gradient of 38 mmHg and mean pressure gradient of 23 mmHg. Mitral Valve Mitral valve leaflets are thickened and calcified. Heavily calcified annulus. Moderate to severe mitral regurgitation No evidence of mitral valve stenosis. Tricuspid Valve The tricuspid valve is normal in structure. Moderate to severe tricuspid regurgitation. Estimated PAP is 60-65mmHg. Pulmonic Valve The pulmonary valve is normal in structure. Trace pulmonic regurgitation. [facility] [address] [place] [address] 2 D/M-MODE ECHOCARDIOGRAM Name: ENRIKE MCDUFFIE Room #: 217-P [facility] IN ..#: [id number] Admission: 03/06/19 Attend Phys: Rica Shaffer MD Discharge: Date of : 30 Report #: [id number] Great Vessels The aortic root is normal in size. 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 IVC is dilated and collapses <50% with inspiration. Pericardium There is no pericardial effusion. Large left and right pleural effusions noted. <Conclusion> The left ventricle is normal size. Mild basal septal hypertrophy is present. LVEF is 50%. This study is not technically sufficient to allow evaluation of the LV diastolic function due to atrial fibrillation. Right ventricle is dilated. Right ventricle is hypokinetic. Left atrium is dilated. Right atrium is dilated. The aortic valve is normal in structure. Leaflets are heavily calcified. Moderate aortic regurgitation. There is severe valvular aortic stenosis. Calculated aortic valve area is 0.6 cm2 with maximum pressure gradient of 38 mmHg and mean pressure gradient of 23 mmHg. Mitral valve leaflets are thickened and calcified. Heavily calcified annulus. Moderate to severe mitral regurgitation Moderate to severe tricuspid regurgitation. Estimated PAP is 60-65mmHg. The aortic root is normal in size. 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 There is no pericardial effusion. <ELECTRONICALLY SIGNED> By: Brandan Alex MD, FACC 03/08/1957 6 6 Brandan Alex MD, FACC /INF
--- NOTE | 2019-03-08 16:06 | EKG ---
[address] [address] ELECTROCARDIOGRAM REPORT Name: FROYENRIKE Watson Room #: 217-P ADM IN M.R.#: [id number] Admission: 03/06/19 Attend Phys: Rica Shaffer MD Discharge: Date of : 30 Report #: [id number] THIS REPORT FOR: //name// [facility] ED Test Date: 2019-03-06 Test Time: 14:16:20 Pat Name: ENRIKE MCDUFFIE Department: Room: 217 Gender: M Industrial Welder: LUCÍA : 1930 Requested By: Dwayne Leger Order Number: [id number] MD: Osiel Marr Measurements Intervals [place] Rate: 105 P: [place]: QRS: -114 QRSD: 135 T: 28 QT: 403 QTc: 533 Interpretive Statements Atrial fibrillation Right bundle branch block Inferior infarct, old Baseline wander in lead(s) V3 Compared to ECG 05/11/2017 15:20:24 Myocardial infarct finding now present Electronically Signed On 03-08-2019 16:06:15 ENTRY LEVEL MARKETING ASSISTANT by Osiel Marr [email or web address] <ELECTRONICALLY SIGNED> By: Osiel Marr MD 03/08/19 1606 1416 1416 Osiel Marr MD /EPI
[2019-03-09 04:54] VITALS: BP 99/70
[2019-03-09 05:33] LABS: CALCIUM 9.3 mg/dL (8.5-10.1); POTASSIUM 3.8 mmol/L (3.5-5.1)
[2019-03-09 07:40] VITALS: BP 116/57
[2019-03-09] MEDS ORDERED: XARELTO15 MG PO (11:24)
[2019-03-09] MEDS ORDERED: DEMADEX20 MG PO (11:25)
[2019-03-09 11:50] VITALS: BP 102/49
[2019-03-09 17:19] VITALS: BP 109/61
[2019-03-09 19:43] VITALS: BP 103/58
[2019-03-10 05:47] VITALS: BP 115/61
[2019-03-10 08:18] VITALS: BP 103/59
[2019-03-10 11:50] VITALS: BP 108/60
[2019-03-10 16:18] VITALS: BP 100/57
[2019-03-10 19:30] VITALS: BP 108/63
[2019-03-11 04:00] VITALS: BP 77/53
[2019-03-11 06:57] VITALS: BP 103/55
[2019-03-11 08:00] VITALS: BP 103/54
[2019-03-11 08:09] VITALS: BP 103/54
--- NOTE | 2019-03-11 12:42 | EKG ---
[address] [address] ELECTROCARDIOGRAM REPORT Name: FROYENRIKE MCCLURE Room #: 217-P ADM IN M.R.#: [id number] Admission: 03/06/19 Attend Phys: Rica Shaffer MD Discharge: Date of : 30 Report #: [id number] THIS REPORT FOR: //name// [facility] Test Date: 2019-03-07 Test Time: 09:14:18 Pat Name: ENRIKE MCDUFFIE Department: Room: 217 P Gender: M Roof Tile Layer: DESHAWN : 1930 Requested By: Brandan Alex Order Number: [id number] MD: Osiel Marr Measurements Intervals [place] Rate: 93 P: [place]: QRS: -132 QRSD: 134 T: -33 QT: 483 QTc: 601 Interpretive Statements Atrial fibrillation Right bundle branch block Probable inferior infarct, age indeterminate Compared to ECG 05/11/2017 15:20:24 Myocardial infarct finding now present Electronically Signed On 03-11-2019 12:42:25 STUDIO COUCH FRAME BUILDER by Osiel Marr [email or web address] <ELECTRONICALLY SIGNED> By: Osiel Marr MD 03/11/19 1242 3 3 Osiel Marr MD /ELENI
== END 2019-03-11 13:06 | DRG 291 ==
LOC: ER 14:12 → EROBS 17:11 → 2N 17:11
PROVIDERS: Emergency Medicine; Internal Medicine Cardiovascular Disease; Nurse Practitioner Adult Health; ADMIT Internal Medicine
PROC: 0HBRXZZ Excision of Toe Nail, External Approach (ICD-10-PCS; principal; 2019-03-08)
DX: I13.0 Hypertensive heart and chronic kidney disease with heart failure and stage 1 through stage 4 chronic kidney disease, or unspecified chronic kidney disease (principal); I50.33 Acute on chronic diastolic (congestive) heart failure; E43 Unspecified severe protein-calorie malnutrition; N17.9 Acute kidney failure, unspecified; I48.21 Permanent atrial fibrillation; Z68.1 Body mass index [BMI] 19.9 or less, adult; J44.9 Chronic obstructive pulmonary disease, unspecified; E03.9 Hypothyroidism, unspecified; L60.3 Nail dystrophy; Z60.2 Problems related to living alone; L03.032 Cellulitis of left toe; I25.10 Atherosclerotic heart disease of native coronary artery without angina pectoris; E11.22 Type 2 diabetes mellitus with diabetic chronic kidney disease; N18.3 Chronic kidney disease, stage 3 (moderate); N40.0 Benign prostatic hyperplasia without lower urinary tract symptoms; G47.00 Insomnia, unspecified; F32.9 Major depressive disorder, single episode, unspecified; B35.1 Tinea unguium; E78.5 Hyperlipidemia, unspecified; M19.90 Unspecified osteoarthritis, unspecified site; Z79.899 Other long term (current) drug therapy; Z91.81 History of falling; Z86.718 Personal history of other venous thrombosis and embolism; Z79.01 Long term (current) use of anticoagulants; Z72.89 Other problems related to lifestyle; Z95.1 Presence of aortocoronary bypass graft; X58.XXXA Exposure to other specified factors, initial encounter; Y93.89 Activity, other specified; Y99.8 Other external cause status; Y92.89 Other specified places as the place of occurrence of the external cause; Z83.3 Family history of diabetes mellitus; S91.139A Puncture wound without foreign body of unspecified toe(s) without damage to nail, initial encounter; I08.3 Combined rheumatic disorders of mitral, aortic and tricuspid valves; Z66 Do not resuscitate
CPT/HCPCS: 10081

== ENCOUNTER 2019-03-19 05:44 | Inpatient (IN) | payer OTHER, BC ==
[2019-03-19] VITALS (7 sets, daily range): BP systolic 81–142; BP diastolic 58–74
[~2019-03-19] VITALS: Ht 175.3 cm; Wt 55.3 kg
[~2019-03-19 05:44] MED LIST changes: +ATENOLOL 25 MG25 M1 PO; +CARVEDILOL12.5 MG PO; +DEMADEX20 MG PO; +DESYREL150 MG PO; +FUROSEMIDE 20 M20 MG PO; +LEVO-T100 MCG PO; +REMERON15 M2 PO; +SPIRIVA18 MCG INH; +XARELTO15 MG PO
[2019-03-19] MEDS ORDERED: CARVEDILOL3.125 MG PO (06:04)
[2019-03-19 06:23] LABS: BASOPHILS 0.3 % (0.0-2.0); EOSINOPHILS 0.2 % (0.0-3.0); HEMATOCRIT 39.5 % (42.0-52.0); HEMOGLOBIN 12.9 gm/dL (14.0-18.0); LYMPHOCYTES 15.1 % (24.0-44.0); MCH 35.6 pg (26.0-34.0); MCHC 32.7 g/dL (28.0-37.0); MCV 108.7 fL (80.0-100.0); PLATELET COUNT 101 thou/uL (150-400); POLYS 78.4 % (36.0-66.0); RBC 3.64 mil/uL (4.50-6.00); WBC 8.9 thou/uL (4.0-11.0)
[2019-03-19 06:32] LABS: CALCIUM 10.2 mg/dL (8.5-10.1); CREATININE 1.5 mg/dL (0.7-1.3); POTASSIUM 4.2 mmol/L (3.5-5.1)
[2019-03-19 06:42] LABS: DIRECT BILIRUBIN 0.5 mg/dL (<0.1-0.2); TOTAL BILIRUBIN 1.5 mg/dL (<0.1-1.0); TOTAL PROTEIN 6.9 g/dL (6.4-8.2); TROPONIN-I 0.08 ng/mL (<0.06)
[2019-03-19 07:26] LABS: BE(vivo) 5.8 mmol/L (-2 to +3); HCO3 30.3 mmol/L (22.0-26.0); PCO2 43.7 mmHg (35.0-45.0); PO2 63.2 mmHg (80.0-100.0); pH 7.459 (7.360-7.450); sO2 93.2 % (92.0-98.0)
[2019-03-19 08:16] LABS: INR 1.2; PROTIME 11.8 Seconds (9.3-11.4)
--- NOTE | 2019-03-19 13:41 | EKG ---
[address] [place] [address] ELECTROCARDIOGRAM REPORT Name: FROYENRIKE Watson Room #: 209-P ADM IN M.R.#: [id number] Admission: 03/19/19 Attend Phys: Isabella Howell MD Discharge: Date of : 30 Report #: [id number] THIS REPORT FOR: //name// [facility] ED Test Date: 2019-03-19 Test Time: 05:51:03 Pat Name: ENRIKE MCDUFFIE Department: Room: 209 Gender: M Content Assistant: mariah : 1930 Requested By: Shayy Madison Order Number: [id number] MD: José Miguel Martinez Measurements Intervals [place] Rate: 141 P: [place]: QRS: -109 QRSD: 117 T: 65 QT: 335 QTc: 513 Interpretive Statements Atrial fibrillation with rapid V-rate Right bundle branch block Inferolateral infarct, old Compared to ECG 03/07/2019 09:14:18 No significant changes Electronically Signed On 03-19-2019 13:41:03 RIDING TEACHER by José Miguel Martinez [email or web address] <ELECTRONICALLY SIGNED> By: José Miguel Martinez MD, [facility] 03/19/19 1341 0551 0551 José Miguel Martinez MD, [facility] /EPI
--- NOTE | 2019-03-19 14:25 | NUR ---
Case opened to follow for dc planning. Pt readmited from SNF at [facility] of OP with fever. [facility] liason advised that they had started a hospice referral and can f/u with pt and dtr if desired. Consult rec'd from the attending to initiate hospice info visit and eval for possible home early next week. Pt and dtr agreeable. Paradi Operator spoke with Dtr Ebony and she is agreeable to hospice meeting over the weekend. She prefers to use [facility]. She has the sr blue book and is going to start calling to setup private duty care as she will not be able to provide 24hr coverage on her own. She can stay with the pt at his home. Basic education on hospice services and insurance coverage discussed. Referral called and faxed to [facility]. Their liason Diana will be intouch with the pt's dtr to setup a meeting over the weekend. Pt is a DNR. Will leave Outside the hospice DNR form for signature as well. Will follow.
--- NOTE | 2019-03-19 16:40 | NUR ---
FAXED CLINICAL UPDATE TO [facility] OF OP SPOKE WITH DAVID IN ADM SHE RECEIVED UPDATE.
--- NOTE | 2019-03-19 17:56 | NUR ---
pt's sacral wound undressed, picture taken for chart, redressed, pt repositioned side to side to keep pressure off sacrum, pt aware and very helpful with moving himself, will continue to remind pt
[2019-03-20 00:15] VITALS: BP 148/64
[2019-03-20 05:06] LABS: ABSOLUTE NEUTROPHILS 4.7 thou/uL (1.4-8.2); BASOPHILS 0.1 % (0.0-2.0); HEMATOCRIT 38.3 % (42.0-52.0); HEMOGLOBIN 12.4 gm/dL (14.0-18.0); LYMPHOCYTES 13.7 % (24.0-44.0); MCH 35.5 pg (26.0-34.0); MCHC 32.5 g/dL (28.0-37.0); MCV 109.2 fL (80.0-100.0); MONOCYTES 2.9 % (1.0-8.0); PLATELET COUNT 88 thou/uL (150-400); POLYS 83.3 % (36.0-66.0); RDW 14.8 % (10.5-14.5); WBC 5.7 thou/uL (4.0-11.0)
--- NOTE | 2019-03-20 05:11 | NUR ---
ASSUMED CARE AT 1900. PT C/O PAIN AT SACRUM, OFF-LOADING WITH PILLOW AND ALTERNATING SIDES. REPORTS SOB SOMEWHAT IMPROVED WITH RT TREATMENTS, HAS COARSE LUNGS SOUNDS WITH CRACKLES ON BOTH SIDES. HR GRADUALLY GOING UP, AND BP HAD IMPROVED FROM EARLIER IN THE DAY; GAVE THE PREVIOUSLY HELD DOSE OF ATENOLOL, WHICH HELPED BRING THE HR DOWN TO 90-100. PT HAD NO URINE OUTPUT OVERNIGHT; BLADDER SCAN SHOWED >400 ML; PT ATTEMPTED TO VOID BOTH SITTING AND STANDING, BUT UNABLE TO VOID. OBTAINED ORDER FOR OMER; WAS DIFFICULT TO PLACE AND HAD A SMALL AMOUNT OF BLOOD WHEN IT FIRST BEGAN DRAINING; URINE WAS VERY DARK AND SOMEWHAT THICK. NO OTHER CONCERNS, WILL CONTINUE TO MONITOR.
[2019-03-20 05:15] VITALS: BP 101/63
[2019-03-20 06:00] LABS: ALBUMIN 2.7 g/dL (3.4-5.0); CALCIUM 9.4 mg/dL (8.5-10.1); CREATININE 1.9 mg/dL (0.7-1.3); PHOSPHORUS 4.6 mg/dL (2.5-4.9); POTASSIUM 3.9 mmol/L (3.5-5.1); TOTAL BILIRUBIN 1.2 mg/dL (<0.1-1.0); TOTAL PROTEIN 5.8 g/dL (6.4-8.2)
[2019-03-20 08:10] VITALS: BP 102/59
--- NOTE | 2019-03-20 09:07 | NUR ---
ASSUMED CARE OF PT APPROX 0715, C/O PAIN ON SACRUM - STATES HES HAD THE SORE SPOT FOR A COUPLE OF MONTHS, HE THINKS HE RUBBED IT SORE SINCE HE'S LOST SO MUCH WEIGHT. AMB W/ONE ASSIST AND WALKER. IVF RUNNING, GOOD APPETITE. MAIN GOAL TODAY IS TO GET WHERE MY BUTT DOES'NT HURT AND TALKING TO SOME PEOPLE ABOUT HOSPICE TO GET OUT OF THE HOSPITAL. SEE SEPARATE INTERVENTIONS FOR ASSESSMENTS, CARDIAC MONITORED. ENCOURAGED HIM TO USE CALL LIGHT FOR ANY NEEDS AND HE DOES
--- NOTE | 2019-03-20 12:01 | EKG ---
[place] [address] [facility] [place] [address] ELECTROCARDIOGRAM REPORT Name: FROYENRIKE Watson Room #: 209-P ADM IN M.R.#: [id number] Admission: 03/19/19 Attend Phys: Isabella Howell MD Discharge: Date of : 30 Report #: [id number] THIS REPORT FOR: //name// [facility] Test Date: 2019-03-20 Test Time: 07:10:22 Pat Name: ENRIKE MCDUFFIE Department: Room: 209 P Gender: M Permanent Waver: Maru SAWANT : 1930 Requested By: José Miguel Martinez Order Number: [id number] MD: José Miguel Martinez Measurements Intervals [place] Rate: 86 P: [place]: QRS: -109 QRSD: 118 T: -87 QT: 493 QTc: 590 Interpretive Statements Atrial fibrillation Incomplete right bundle branch block Inferior infarct, age indeterminate Abnrm T Compared to ECG 03/19/2019 05:51:03 Heart rate has slowed Electronically Signed On 03-20-2019 12:00:36 CELL BIOLOGY SCIENTIST by José Miguel Martinez [email or web address] <ELECTRONICALLY SIGNED> By: José Miguel Martinez MD, [facility] 03/20/19 1200 0710 07 José Miguel Martinez MD, [facility] /EPI
[2019-03-20 12:10] VITALS: BP 81/53
[2019-03-20 16:00] VITALS: BP 86/57
[2019-03-20 20:55] VITALS: BP 80/56
--- NOTE | 2019-03-21 04:42 | NUR ---
ASSUMED PT CARE AT 1900. VSS. PT A&0X4. PT NOW ON 3L NC SATTING ABOVE 99%. BARRIER CREAM APPLIED TO PT'S COCCYX AND BORDER FOAM APPLIED. SOME DRAINAGE NOTED BUT AREA IS WELL APPROXIMATED. PT IS STABLE, NO COMPLAINTS OF PAIN OR DISCOMFORT. WILL CONTINUE TO MONITOR PER POC
[2019-03-21 05:39] VITALS: BP 109/58
[2019-03-21 06:50] LABS: CREATININE 2.4 mg/dL (0.7-1.3); POTASSIUM 4.5 mmol/L (3.5-5.1)
[2019-03-21 07:01] LABS: CALCIUM 9.6 mg/dL (8.5-10.1)
[2019-03-21 08:00] VITALS: BP 100/60
--- NOTE | 2019-03-21 08:03 | NUR ---
ASSUMED CARE OF PT APPROX 0715, A&0X4, APPEARS RESTED, LESS SOA AT THE MOMENT. SEE SEPARATE INTERVENTIONS FOR ASSESSMENTS. CARDIAC MONITORED, ON 02 HERE, NOT USUALLY AT HOME. VERY SOA W/MINIMAL MOVEMENT, WHEN HE NEEDS TO BE REPOSITIONED, YET ACCLIMATES QUICKLY. BORDER FORM BEING CHANGED OUT DAILY ON SACRUM. TYLENOL FOR PAIN HE STATES FROM OMER PLACEMENT TWO DAYS AGO AND HIS LOWER BACK/SACRUM. ENCOURAGED HIM TO USE CALL LIGHT FOR ANY NEEDS
[2019-03-21 11:55] VITALS: BP 74/54
[2019-03-21 16:20] VITALS: BP 88/44
[2019-03-21 21:15] VITALS: BP 86/66
[2019-03-22 04:33] VITALS: BP 111/56
[2019-03-22 05:29] LABS: ABSOLUTE NEUTROPHILS 9.6 thou/uL (1.4-8.2); BASOPHILS 0.1 % (0.0-2.0); HEMATOCRIT 38.3 % (42.0-52.0); HEMOGLOBIN 12.4 gm/dL (14.0-18.0); LYMPHOCYTES 6.8 % (24.0-44.0); MCH 35.6 pg (26.0-34.0); MCHC 32.4 g/dL (28.0-37.0); MCV 110.1 fL (80.0-100.0); MONOCYTES 2.7 % (1.0-8.0); PLATELET COUNT 101 thou/uL (150-400); POLYS 90.4 % (36.0-66.0); RBC 3.48 mil/uL (4.50-6.00); RDW 14.8 % (10.5-14.5); WBC 10.7 thou/uL (4.0-11.0)
[2019-03-22 05:56] LABS: ALBUMIN 2.7 g/dL (3.4-5.0); CALCIUM 9.9 mg/dL (8.5-10.1); CREATININE 2.8 mg/dL (0.7-1.3); MAGNESIUM 2.1 mg/dL (1.8-2.4); PHOSPHORUS 6.3 mg/dL (2.5-4.9); POTASSIUM 5.2 mmol/L (3.5-5.1); TOTAL BILIRUBIN 0.9 mg/dL (<0.1-1.0); TOTAL PROTEIN 6.2 g/dL (6.4-8.2)
--- NOTE | 2019-03-22 05:58 | NUR ---
ASSUMED CARE OF PT AT 1900HRS. PT IS AOX4 AND LETS NEEDS BE KNOWN. FALL PRECAUTION IN PLACE. OMER IN PLACE AND IS PATIENT. ABX TREAMENT CONTINUED. 3L O2 VIA NC CONTINED. PT WAS TURNED Q2-3H. PT REPORTED EAGLE NAUSEA AND WAS TREATED WITH PRN MEDS. PT DENIES PAIN. PT WAS ABLE TO GET COMFORTABLE AND SLEEP PART OF THE SHIFT. VSS AND NO S/S OF ACUTE DISTRESS. WILL CONINUE TO MONITOR.
[2019-03-22 08:10] VITALS: BP 79/54
--- NOTE | 2019-03-22 10:04 | NUR ---
WOUND CARE CONSULT PT ALERT COOPERATIVE, STATES HE HAS HAD THIS ULCER SACRAL AREA FOR SEVERAL MONTHS, STAGE 2 PRESSURE INJURY, SEE PROCESS INTERVENTION FOR DETAILS, SCANT DRAINAGE, NO S/S INFECTION, ENCOURAGED TO TURN, OFF LOADING MUCH POSSIBLE RECOMMENDATIONS; ZGUARD TO WOUND DAILY AND PRN, COVER W/ BORDER FOAM DRSG, OFF LOADING HEELS W/ PILLOWS, TURN Q 2HOURS WHEN IN BED, WILL ORDER LOW AIR LOSS PUMP TO BED MEDIA SERVICES DIRECTOR INFORMED
--- NOTE | 2019-03-22 10:51 | NUR ---
spoke with Ebony justin who reports she met with [facility] this weekend with planned dc to home with hospice. Dtr to call pvt dty agencies this am. Updated Hospice agency.
[2019-03-22 11:55] VITALS: BP 96/42
--- NOTE | 2019-03-22 12:22 | NUR ---
DISCHARGE PLANS ARE FOR HOSPICE AT HOME. FAMILY PLANS ON HAVING IN-HOME CARE SERVICES. THEREFORE, OCCUPATIONAL THERAPY SERVICES IN ACUTE CARE SETTING ARE NOT APPROPRIATE AT THIS TIME.
--- NOTE | 2019-03-22 15:19 | NUR ---
Spoke with dtr who is agreeable for dc home tomorrow with [facility]. [facility] to coordinate equitment for home. Outside DNR form in room for dtr to sign.
[2019-03-22 16:15] VITALS: BP 107/38
[2019-03-22 17:15] LABS: LARGE PLATELETS OCCASIONAL; MACROCYTES 1+
--- NOTE | 2019-03-22 18:06 | NUR ---
ASSUMED CARE 0700. ALERT X4, HEARTBURN PAIN MANAGED WITH MEDS, CONTINUES ON 3L O2, POOR INTAKE WITH ALL MEALS INCLUDING FLUIDS, INCONTINENT BM TODAY, OMER PATENT. UP WITH ASSIST X1 WITH GAIT BELT AND WALKER. WOUNDCARE NURSE ROUND FOR OPEN AREA ON COCCYX BOARDER FOAM DRESSING IN PLACE. GOING HOME ON HOSPICE TOMORROW. FALL PRECAUTIONS IN PLACE. CALLS FOR ASSISTANCE.
--- NOTE | 2019-03-22 19:41 | NUR ---
ASSUMED CARE OF PATIENT APPROX 181. PT A&OX4, 3L O2, CONGESTED COUGH, LUNGS COURSE. NO SIGNS OF DISTRESS. PATIENT RESTING IN BED WITH NI CONCERNS AT THIS TIME. WILL CONTINUE TO MONITOR.
--- NOTE | 2019-03-23 02:23 | NUR ---
PT IS A/O X4.PT APPEARED TO BE IN NO DISTRESS,PT IS ON 3L OF O2 NASAL CANULA.PT DENIED PAIN .PT IS ACCUCHECK ACHS.PT IS ON AN AIRLOSS MATTRESS.PT HAS A OMER CATHETER IN PLACE.WILL CONTINUE TO MONITOR PT PER POC
[2019-03-23 05:17] LABS: CALCIUM 8.9 mg/dL (8.5-10.1); CREATININE 3.6 mg/dL (0.7-1.3); POTASSIUM 5.2 mmol/L (3.5-5.1)
[2019-03-23 07:15] VITALS: BP 107/48
--- NOTE | 2019-03-23 09:08 | NUR ---
Nutrition: RD noted dx sepsis and stage 2 wound. Assessment deferred as pt to discharge home with hospice likely today. RD remains available PRN if POC changes.
--- NOTE | 2019-03-23 11:50 | NUR ---
ASSUMED CARE OF PT AT APPROX 0700. PT IS ALERT AND ORIENTED X4. ASSESSMENT CHARTED. PT DENIES PAIN CURRENTLY. DRESSING CHANGED TO COCCYX AND PHOTO TAKEN IN PREPARATION FOR POSSIBLE DC TODAY. PT HAS VERY POOR APPETITE. WOULD NOT EAT BREAKFAST, EDUCATED IMPORTANCE OF EATING ANDPT STATES THAT HE UNDERSTANDS BUT HE IS NOT HUNGRY. PLAN FOR DC WITH HOSPICE. PT IN STABLE CONDITION. NAD NOTED. DENIES FURTHER QUESTIONS OR CONCERS AT THIS TIME. WILL CONTINUE TO MONITOR.
[2019-03-23 14:04] VITALS: BP 91/66
[2019-03-23] MEDS ORDERED: ACETAMINOPHEN325 M1 PO (14:04)
[2019-03-23] MEDS ORDERED: IPRAT-ALBUT 0.5-3 ML INH (14:04)
[2019-03-23] MEDS ORDERED: ATENOLOL 25 MG25 M1 PO (14:04)
[2019-03-23] MEDS ORDERED: AUGMENTIN 500-1 EACH PO (14:04)
[2019-03-23] MEDS ORDERED: LORAZEPAM I2 MG/1 M2 SUBLING (14:04)
[2019-03-23] MEDS ORDERED: MSL20MG/ML PO (14:04)
[2019-03-23] MEDS ORDERED: PREDNISONE 20 M20 M1 PO (14:04)
--- NOTE | 2019-03-23 14:39 | NUR ---
CM CALLED [facility] SPOKE WITH DAVID IN ADMISSIONS WITH [facility] AND SHE INDICATED THAT EQUIPMENT HAD BEEN DELIVERED YESTERDAY. SHE INDICATED THAT THEY WOULD HAVE A NURSE OUT TO MEET PT ONCE TRANSPORT WAS ARRANGED. ORDERS WERE ENTERED. DAISY SPOKE WITH PT'S DTR AND SHE IS AWARE AND AGREEABLE WITH [facility] THIS DAY. CM ARRANGED [facility] AND THEY INDICATED THAT THEY HAD AN OPENING AROUND 1430. CM NOTIFIED PT, DTR, AND DAVID. ORDERS TO BE FAXED. [facility] FORM AND OUT OF THE HOSPITAL DNR FORM COMPLETED. NO OTHER CM INTERVENTION INDICATED CASE CLOSED.
== END 2019-03-23 16:16 | disposition hospice, home (50) | DRG 193 ==
LOC: ER 05:44 → 2N 08:12 → EROBS 08:12 → 2N 09:06 → 4W 03-22 18:14
PROVIDERS: Emergency Medicine; Nurse Practitioner Adult Health; ADMIT Internal Medicine
DX: J18.9 Pneumonia, unspecified organism (principal); J96.20 Acute and chronic respiratory failure, unspecified whether with hypoxia or hypercapnia; E43 Unspecified severe protein-calorie malnutrition; I50.43 Acute on chronic combined systolic (congestive) and diastolic (congestive) heart failure; I13.0 Hypertensive heart and chronic kidney disease with heart failure and stage 1 through stage 4 chronic kidney disease, or unspecified chronic kidney disease; E87.2 Acidosis; J44.1 Chronic obstructive pulmonary disease with (acute) exacerbation; I48.21 Permanent atrial fibrillation; N17.9 Acute kidney failure, unspecified; Z51.5 Encounter for palliative care; E78.5 Hyperlipidemia, unspecified; M19.90 Unspecified osteoarthritis, unspecified site; R79.89 Other specified abnormal findings of blood chemistry; I35.0 Nonrheumatic aortic (valve) stenosis; N18.3 Chronic kidney disease, stage 3 (moderate); Z66 Do not resuscitate; I25.10 Atherosclerotic heart disease of native coronary artery without angina pectoris; I34.0 Nonrheumatic mitral (valve) insufficiency; I07.1 Rheumatic tricuspid insufficiency; E11.22 Type 2 diabetes mellitus with diabetic chronic kidney disease; Z91.81 History of falling; Z79.899 Other long term (current) drug therapy; Z79.01 Long term (current) use of anticoagulants; Z86.718 Personal history of other venous thrombosis and embolism; Z95.1 Presence of aortocoronary bypass graft; Z83.3 Family history of diabetes mellitus
CPT/HCPCS: 10047; 10081